=== PATIENT | female | born 1970 | race African-American/Black ===

== ENCOUNTER → 2020-03-23 | Outpatient (CLI) | payer BC ==
[~2020-03-23] MED LIST: IBUPROFEN 400400 M1 PO; PERCOCET 5-3251 EACH PO
== END ==
LOC: SJCVCIMAG 11:10
PROVIDERS: ATTEND Internal Medicine
DX: R07.9 Chest pain, unspecified (principal)

== ENCOUNTER → 2021-07-05 | Outpatient (CLI) | payer OTHER | LOC: CAT 13:28 | PROVIDERS: ATTEND Family Medicine | DX: Z13.6 Encounter for screening for cardiovascular disorders (principal); I25.10 Atherosclerotic heart disease of native coronary artery without angina pectoris; E78.00 Pure hypercholesterolemia, unspecified ==